=== PATIENT | female | born 1975 | race Caucasian/White ===

== ENCOUNTER 2017-01-15 11:05 | Emergency (ER) | payer SELFPAY ==
[~2017-01-15 11:05] MED LIST: Iopamidol 370 76% 100 ML VIAL ONE
[2017-01-15] MEDS ORDERED: Benzonatate 100 MG CAP ONE (11:37)
[2017-01-15] MEDS ORDERED: predniSONE 20 MG TAB ONE (11:37)
[2017-01-15] MEDS ORDERED: Bicillin LA 1.2 MILLION UNITS/2 ML SYRINGE ONE (11:37)
[2017-01-15] MEDS ORDERED: Naproxen 500 MG TAB ONE (11:55)
--- NOTE | 2017-01-15 12:32 | RAD ---
CHEST ONE VIEW: HISTORY: Cough and congestion for three days. COMPARISON: None. FINDINGS: The cardiac silhouette and pulmonary vasculature are unremarkable. The lungs are somewhat hyperinfl ated. Nodular densities project over each upper lobe. No lobar consolidation or pneumothorax is apparent. IMPRESSION: Bilateral upper lobe nodular densities. Please consider CT chest for better characterization of pos sible infiltrate versus mass. POS: [facility]
[2017-01-15 13:12] LABS: BHCG - Serum Negative (NEGATIVE); Pregs Control Background? CLEAR/WHITE (CLR/WHITE); Pregs Control Bar Appear? YES (CONTROL BAR)
[2017-01-15 13:19] LABS: Mean Corpuscular HGB CONC 33.3 g/dL (32.0-36.0); Mean Corpuscular Hemoglobin 30.7 pg (27.0-31.0); Mean Corpuscular Volume 92.2 fl (81.0-99.0); Mean Platelet Volume 9.7 fL (7.4-10.4); Platelet Count 176 thou/uL (130-400); RBC Distribution Width 10.7 % (11.5-14.5); Red Blood Cell (RBC) Count 4.55 mill/uL (4.20-5.40); White Blood Cell (WBC) Count 7.1 thou/uL (4.8-10.8)
[2017-01-15 13:20] LABS: Anisocytosis SLIGHT = 6-15 cells (100X) (0-5/hpf); Band 4 % (5-11); Eosinophils 2 % (0-10); Lymphocytes 15 % (21-51); MDiff Complete? YES; Manual Diff?? YES; Monocytes 11 % (0-10); Neutrophil 68 % (42-75); PLT Morphology Comment Appears Adequate
[2017-01-15 13:27] LABS: AST (SGOT) 24 U/L (5-34); Albumin 3.4 g/dL (3.5-5.0); Alkaline Phosphatase 46 U/L (40-150); BUN (Urea Nitrogen) 9 mg/dL (7.0-18.7); Bilirubin, Total 0.8 mg/dL (0.2-1.2); Calc. Creatinine Clearance 0 mL/min (70-130); Calcium 8.2 mg/dL (7.8-10.44); Carbon Dioxide 21 mmol/L (22-29); Chloride 103 mmol/L (98-107); Estimated GFR-MDRD Greater than 90; Glucose 88 mg/dL (70-105); Potassium 4.5 mmol/L (3.5-5.1); Protein, Total 6.4 g/dL (6.0-8.3); Sodium 137 mmol/L (136-145)
[2017-01-15 13:28] LABS: ALT (SGPT) 26 U/L (8-55); Anion Gap 18 mmol/L (10-20)
--- NOTE | 2017-01-15 14:44 | CT ---
CT CHEST WITH IV CONTRAST: HISTORY: Cough, abnormal chest x-ray of earlier today. FINDINGS: No mediastinal, hilar, or axillary mass or lymphadenopathy is seen. A few prominent mediastinal lym ph nodes are seen measuring up to 8 mm in short axis diameter. The tracheal bronchial tree is paten t. There are patchy airspace opacities with nodularity noted in the right upper lobe, left upper lo be, and the left lower lobe. No pleural or pericardial effusions are seen. No acute osseous abnorm alities are identified. Upper abdominal tomograms are unremarkable. IMPRESSION: Findings are most likely due to pneumonia. A followup exam is recommended in 6 to 8 weeks (after a course of antibiotics). CODE T POS: [facility]
[2017-01-15] MEDS ORDERED: diphenhydrAMINE HCl 50 MG/ML 1 ML VIAL ONE (15:21)
[2017-01-15] MEDS ORDERED: HYDROcodone/Acetaminophen 10/325 mg Tablet ONE (15:21)
== END 2017-01-15 15:30 | disposition home or self-care (01) ==
LOC: MADERS 11:05
DX: J18.9 Pneumonia, unspecified organism (principal)
CPT/HCPCS: 36415; 71010; 71260; 80053; 84703; 85025; 87040; 87149; 96372; 96374; J0561; J1200; J7506